=== PATIENT | male | born 1990 | race Caucasian/White ===

== ENCOUNTER 2017-11-24 15:08 | Emergency (ER) | payer OTHER ==
[2017-11-24 15:19] VITALS: BP 143/93; PULSE 73; TEMP 98.5; BMI 21.5
--- NOTE | 2017-11-24 15:37 | PDOC ---
History of Present Illness - General History Source: Patient Exam Limitations: No Limitations - History of Present Illness Initial Comments: The patient is a 27 year old male with a significant past medical history of HTN who presents to the emergency department complaining of left gingiva and tongue pain beginning 3 days ago. The patient reports visiting [facility] and testing positive for Influenza A on Saturday and was given Tamiflu. He reports having lower lip, tongue, and left sided gingiva pain lasting 3 days, 2 days after the visit . The patient reports not being able to eat due to pain in mouth , but has been able to take in fluids.The patient visited the [facility] on for the symptoms and was given Valtrex 500mg (unsure). The patient reports having a cavity on the right side of mouth extracted several months ago; however, he states he did not have a severe cavity on his left side extracted. He reports slight alleviation with 2 Aleve a day. Of note, the patient received an Influenza test on Saturday(11/19), which tested positive for Influenza A, and an HIV test on (11/21). The patient denies chest pain, shortness of breath, headache, and dizziness. Denies fevers, chills, nausea, vomiting, diarrhea, and constipation. Denies dysuria, frequency, urgency, and hematuria. Allergies: NKA Past surgical history: The patient denies. Social history: No reported cigarette, alcohol, or drug use. <Mati Rand - Last Filed: 11/24/17 16:14> <Yuval Kunz - Last Filed: 11/24/17 16:19> - General Chief Complaint: Oral Ulcers Stated Complaint: PERSISTENT PAIN, MOUTH SORES Time Seen by Provider: 11/24/17 15:13 Past History <Mati Rand - Last Filed: 11/24/17 16:14> - Past Medical History COPD: No Other medical history: ORAL ULCERS, IS ON VALTREX, HAS FLU, IS ON TAMIFLU - Suicide/Smoking/Psychosocial Hx Smoking Status: No Smoking History: Never smoked Number of Cigarettes Smoked Daily: 0 Hx Alcohol Use: (occasional) <Yuval Kunz - Last Filed: 11/24/17 16:19> - Past Medical History Allergies/Adverse Reactions: Allergies Allergy/AdvReac Type Severity Reaction Status Date / Time No Known Allergies Allergy Verified 11/24/17 15:11 Home Medications: Ambulatory Orders Naproxen Sodium [Aleve] mg PO ASDIR 11/24/17 Orajel 11/24/17 Penicillin V Potassium [Pen Vee K -] 500 mg PO QID #28 tablet 11/24/17 Valacyclovir HCl [Valtrex] 1,000 mg PO BID #10 tablet 11/24/17 Review of Systems - Review of Systems Able to Perform ROS?: Yes Comments:: CONSTITUTIONAL: Absent: Fever, Chills, Diaphoresis, Generalized Weakness, Malaise, Loss of Appetite HEENT: (+)Lip swelling. (+)Mouth pain. Absent: Rhinorrhea, Nasal Congestion, Throat Pain, Throat Swelling, Ear Pain, Eye Pain, Visual Changes CARDIOVASCULAR: Absent: Chest Pain, Syncope, Palpitations, Irregular Heart Rate, Lightheadedness , Peripheral Edema RESPIRATORY: Absent: Cough, Shortness of Breath, SOB with Exertion, Orthopnea, Wheezing, Stridor, Hemoptysis GASTROINTESTINAL: Absent: Abdominal pain, Abdominal Distension, Nausea, Vomiting, Diarrhea, Constipation, Melena, Hematochezia GENITOURINARY: Absent: Dysuria, Frequency, Urgency, Hesitancy, Flank Pain, Genital Pain MUSCULOSKELETAL: Absent: Myalgia, Arthralgia, Joint Swelling, Back pain, Neck Pain SKIN: Absent: Rash, Itching, Pallor HEMATOLOGIC/IMMUNOLOGIC: Absent: Easy Bleeding, Easy Bruising, Lymphadenopathy, Frequent infections ENDOCRINE: Absent: Unexplained Weight Gain, Unexplained Weight Loss, Heat Intolerance, Cold Intolerance NEUROLOGIC: Absent: Headache, Focal Weakness, Paresthesias, Vertigo, Lightheadedness, Unsteady Gait, Seizure, Mental Status Changes, Incontinence PSYCHIATRIC: Absent: Anxiety, Depression <Mati Rand - Last Filed: 11/24/17 16:14> *Physical Exam - Vital Signs Last Vital Signs Temp Pulse Resp BP Pulse Ox 98.5 F 73 18 143/93 98 11/24/17 15:08 11/24/17 15:08 11/24/17 15:08 11/24/17 15:08 11/24/17 15:08 - Physical Exam Comments: GENERAL: The patient is awake, alert, and fully oriented, in no acute distress. HEAD: Normal with no signs of trauma. EYES: Pupils equal, round and reactive to light, extraocular movements intact, sclera anicteric, conjunctiva clear. ENT: Ears normal, nares patent, Moist mucous membranes. MOUTH: (+)Carious tooth #17, tap tender. (+)Crusting lesions on lower lip. (+) Vesicles and small ulcers on soft palate. (+)Erythema of gingiva. NECK: Normal range of motion, supple without lymphadenopathy, JVD, or masses. LUNGS: Breath sounds equal, clear to auscultation bilaterally. No wheezes, and no crackles. HEART: Regular rate and rhythm, normal S1 and S2 without murmur, rub or gallop. ABDOMEN: Soft, nontender, normoactive bowel sounds. No guarding, no rebound. No masses. EXTREMITIES: Normal range of motion, no edema. No clubbing or cyanosis. No cords , erythema, or tenderness. NEUROLOGICAL: Cranial nerves II through XII grossly intact. Normal speech, normal gait. PSYCH: Normal mood, normal affect. SKIN: Warm, Dry, normal turgor, no rashes or lesions noted. <Mati Rand - Last Filed: 11/24/17 16:14> - Vital Signs Last Vital Signs Temp Pulse Resp BP Pulse Ox 98.5 F 73 18 143/93 98 11/24/17 15:08 11/24/17 15:08 11/24/17 15:08 11/24/17 15:08 11/24/17 15:08 <Yuval Kunz - Last Filed: 11/24/17 16:19> Medical Decision Making - Medical Decision Making 11/24/17 16:17 27-year-old man with no significant past medical history presents with oral pain. He was sick with fever for about a week. He was seen 5 days ago at the urgent care center and tested positive for flu a, was started on Tamiflu. 2 days later he was seen again at urgent care for oral ulcers and pain, started on Valtrex. He was tested for HIV at that time as well. He now comes to the ED with persistent oral pain despite Valtrex. He is also complaining of a toothache in the left lower quadrant to a previously carious tooth. On examination, he appears well. His blood pressure is borderline elevated, however, he is being followed by his primary care physician on diet for mild hypertension. 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 His gums appear mildly inflamed and there are some oral ulcers on the soft palate. Tooth #17 is severely carious with tap tenderness. There is no adjacent abscess. There is no facial swelling or neck swelling. Impression: Influenza a Viral stomatitis Toothache of tooth #17 Plan: Patient to continue Valtrex 1 g twice a day, new prescription given Patient to continue Aleve 440 mg twice a day as needed for pain Patient is to start penicillin VK 500 mg 4 times a day for toothache Hydrogen peroxide rinses advised Vaseline to the lower lip advised Patient to follow up with dentist and primary care physician <Yuval Kunz - Last Filed: 11/24/17 16:19> *DC/Admit/Observation/Transfer - Attestations Scribe Attestion: Documentation prepared by Mati Rand, acting as medical case worker for Yuval Kunz MD. <Mati Rand - Last Filed: 11/24/17 16:14> - Discharge Dispostion Admit: No <Yuval Kunz - Last Filed: 11/24/17 16:19> Diagnosis at time of Disposition: Stomatitis - Discharge Dispostion Disposition: HOME Condition at time of disposition: Stable - Prescriptions Prescriptions: Penicillin V Potassium [Pen Vee K -] 500 mg PO QID #28 tablet Valacyclovir HCl [Valtrex] 1,000 mg PO BID #10 tablet - Patient Instructions Printed Discharge Instructions: DI for Aphthous Ulcers (Canker Sores) Additional Instructions: Theodore, you were evaluated today for sores in your mouth. There are likely 2 things going on. The first is a herpes virus infection of your lips and gums. Take Valtrex 1 g (1000 mg) twice a day for the next 5 days to help resolve the herpes virus infection. You have also been prescribed penicillin 500 mg 4 times a day for the tooth infection in the left lower part of your mouth. Continue to take Aleve, 2 tablets twice a day as needed for pain. Rinse your mouth with hydrogen peroxide and then water to help clear out the viral infection and speed healing. Follow-up with your dentist and your primary care physician. Return to the emergency department for any severe or progressive symptoms.
[2017-11-24] MEDS ORDERED: PENICILLIN V POTASSIUM 500 MG TABLET PO ONE (16:02)
== END 2017-11-24 16:24 | disposition home or self-care (01) ==
LOC: FER 15:08
DX: K12.1 Other forms of stomatitis (principal); I10 Essential (primary) hypertension
CPT/HCPCS: 99283-25

== ENCOUNTER 2017-11-30 13:25 | Emergency (ER) | payer OTHER ==
[2017-11-30 13:37] VITALS: BP 120/67; PULSE 74; TEMP 98.3; BMI 21.1
--- NOTE | 2017-11-30 13:44 | PDOC ---
Attending Attestation - Resident Resident Name: Federico Hines - ED Attending Attestation I have performed the following: I have examined & evaluated the patient, The case was reviewed & discussed with the resident, I agree w/resident's findings & plan, Exceptions are as noted - HPI HPI: 11/30/17 13:45 27-year-old male with a history of diet-controlled hypertension, recent infection with influenza A and stomatitis presents to the emergency department with left second fingertip infection. Patient reports one week ago that he bit a hangnail and since then developed redness and progressive swelling and pain to the distal fingertip. Denies any fevers or chills. Denies similar symptoms in the past. He reports his flu symptoms and stomatitis have resolved since he was here last week. Denies any chest pain, shortness of breath, headaches, abdominal pain, nausea/vomiting/diarrhea, lower extremity edema, weakness or dizziness. - Physicial Exam PE: 11/30/17 13:46 GENERAL: Awake, alert, and fully oriented, in no acute distress HEAD: No signs of trauma EYES: PERRLA, EOMI, sclera anicteric, conjunctiva clear ENT: Auricles normal inspection, hearing grossly normal, nares patent, oropharynx clear without exudates. Moist mucosa NECK: Normal ROM, supple, no lymphadenopathy, JVD, or masses LUNGS: Breath sounds equal, clear to auscultation bilaterally. No wheezes, and no crackles HEART: Regular rate and rhythm, normal S1 and S2, no murmurs, rubs or gallops ABDOMEN: Soft, nontender, normoactive bowel sounds. No guarding, no rebound. No masses EXTREMITIES: L 2nd digit with erythema, edema, tenderness arising from eponychial fold consistent with paronychia. No vesicular legions. Otherwise, normal range of motion, no edema. No clubbing or cyanosis. No cords, erythema, or tenderness. 2+ peripheral pulses. NEUROLOGICAL: Normal speech, cranial nerves intact, negative pronator drift, 5/ 5 strength in all 4 extremities, normal sensation to light touch in all 4 extremities, normal cerebellar exam, normal gait, normal reflexes and tone SKIN: Warm, Dry, normal turgor, no rashes or lesions noted. - Medical Decision Making 11/30/17 13:49 Likely paronycia as no vesicular lesions, unlikely herpetic yazan. Paronychia drained by Dr. Hines with purulent and bloody drainage. Good relief of pain and swelling post I&D. No systemic sxs. Will DC, advised pt to do warm compresses as there may be continued drainage. Pt expresses understanding, requests DC home. I discussed the physical exam findings, ancillary test results and final diagnoses with the patient. I answered all of the patient's questions. The patient was satisfied with the care received and felt comfortable with the discharge plan and treatment plan. The patient will call their primary care physician within 24 hours to arrange follow-up and will return to the Emergency Department with any new, persistent or worsening symptoms. Discharge Disposition - Diagnosis Paronychia - Discharge Dispostion Disposition: HOME Condition at time of disposition: Good Last Admission D/C Date: 88 Admit: No - Referrals Referrals: Chanelle Bella MD [Primary Care Provider] - - Patient Instructions Printed Discharge Instructions: DI for Paronychia Additional Instructions: Follow-up with your primary care doctor within 1 week. As discussed, apply warm compresses to your finger 3 times a day as this will help further draining of the infection in your finger. Take ibuprofen as needed for pain. Return to the emergency department if you have any new, worsening or concerning symptoms. - Post Discharge Activity
--- NOTE | 2017-11-30 13:57 | PDOC ---
History of Present Illness - General Chief Complaint: Redness To Affected Area Stated Complaint: LEFT FINGER INFECTION Time Seen by Provider: 11/30/17 13:29 - History of Present Illness Initial Comments: 11/30/17 13:52 The patient is a 27 year old male who presents for evaluation of swelling and redness to his left index finger. The patient reports that he had a recent tooth infection and oral sores for which he had been taking valtrex and penecillin for. He notes that he noticed swelling and redness to his left index finger over the past 1 week after biting his nails prompting his presentation to the ED. He otherwise denies fevers, chills, SOB, chest pain, nausea, vomiting, abdominal pain, weakness, or changes with urination or bowel movements. Past History - Past Medical History Allergies/Adverse Reactions: Allergies Allergy/AdvReac Type Severity Reaction Status Date / Time No Known Allergies Allergy Verified 11/24/17 15:11 Home Medications: Ambulatory Orders Naproxen Sodium [Aleve] mg PO ASDIR 11/24/17 Orajel 11/24/17 Penicillin V Potassium [Pen Vee K -] 500 mg PO QID #28 tablet 11/24/17 Valacyclovir HCl [Valtrex] 1,000 mg PO BID #10 tablet 11/24/17 COPD: No - Suicide/Smoking/Psychosocial Hx Smoking Status: No Smoking History: Never smoked Number of Cigarettes Smoked Daily: 0 Hx Alcohol Use: Yes (OCCASIONAL) Drug/Substance Use Hx: No Review of Systems - Review of Systems Comments:: 11/30/17 13:55 Constitutional: No fevers, chills, fatigue, malaise HEENT: No Rhinorrhea, nasal congestion, visual changes Cardiovascular: No chest pain, syncope, palpitations, lightheadedness Respiratory: No Cough, SOB, Hemoptysis, Gastrointestinal: No Abdominal pain, Nausea, Vomiting, Constipation, Diarrhea, Melena Genitourinary: No Dysuria, Frequency, Urgency, Hesitancy, Hematuria, Flank pain Musculoskeletal: No Myalgia, arthralgia Skin: Redness and Swelling to the distal Left Index Finger. No rashes, itching , bruising, pallor Neurologic: No Headache, Dizziness, Numbness, Weakness, or Tingling Psychiatric: No Hallucinations. No SI or HI *Physical Exam - Vital Signs Last Vital Signs Temp Pulse Resp BP Pulse Ox 98.3 F 74 15 120/67 100 11/30/17 13:29 11/30/17 13:29 11/30/17 13:29 11/30/17 13:29 11/30/17 13:29 - Physical Exam Comments: 11/30/17 13:56 General Appearance: Nourished. No Apparent Distress HEENT: No Pharyngeal Erythema, Tonsillar Exudate, Tonsillar Erythema Neck: No Cervical Lymphadenopathy Respiratory/Chest: Lungs Clear, Normal Breath Sounds. No Crackles, Rales, Rhonchi, Wheezing Cardiovascular: Regular Rhythm, Regular Rate. No Murmur, Gallops, Rubs Gastrointestinal/Abdominal: Normal Bowel Sounds, Soft. No Guarding, Rebound, Tenderness Musculoskeletal: No CVA Tenderness Extremity: Paronychia with redness and fluculent swelling noted to the distal left index finger. Normal ROM. Normal Capillary Refill Integumentary: Normal Color, Dry, Warm Neurologic: Fully Oriented, Alert, Normal Mood/Affect, Normal Response, Procedures - Incision and Drainage I&D Site: Left: Paronychia (Index Finger) Blade Size: 11 Attempts: 1 Complications: none Dressing: Yes Medical Decision Making - Medical Decision Making 11/30/17 13:58 The patient is a 27 year old male who presents for evaluation of swelling and redness to his left index finger. Given the patient's physical exam, it appears his symptoms are due to a paronychia. The paronychia was I&D with purulent fluid drainage from the site and the wound was dressed. We discussed return precautions as well as proper wound care with the patient who voiced understanding. We are comfortable discharging the patient home at this time with primary care provider follow up. The patient voiced understanding and is agreeable with the plan. *DC/Admit/Observation/Transfer Diagnosis at time of Disposition: Paronychia - Discharge Dispostion Disposition: HOME Condition at time of disposition: Good - Referrals Referrals: Chanelle Bella MD [Primary Care Provider] - - Patient Instructions Printed Discharge Instructions: DI for Paronychia Additional Instructions: Follow-up with your primary care doctor within 1 week. As discussed, apply warm compresses to your finger 3 times a day as this will help further draining of the infection in your finger. Take ibuprofen as needed for pain. Return to the emergency department if you have any new, worsening or concerning symptoms. - Post Discharge Activity
== END 2017-11-30 14:00 | disposition home or self-care (01) ==
LOC: FER 13:25
PROC: 0H9QXZZ Drainage of Finger Nail, External Approach (ICD-10-PCS; principal; 2017-11-30)
DX: L03.012 Cellulitis of left finger (principal)
CPT/HCPCS: 99282-25

== ENCOUNTER 2021-11-20 11:34 | Emergency (ER) | payer OTHER ==
[2021-11-20 11:39] VITALS: BP 119/76; PULSE 68; TEMP 97.8; BMI 22.2
[2021-11-20] MEDS ORDERED: IBUPROFEN 400 MG TABLET (FP) PO ONE ×2 (11:40→12:00)
[2021-11-20] MEDS ORDERED: LIDOCAINE 5% TOPICAL PATCH TP ONE (12:23)
[2021-11-20] MEDS ORDERED: LIDOCAINE 5% TOPICAL PATCH ONE (12:25)
[2021-11-20] MEDS ORDERED: LIDOCAINE PATCH REMOVAL MC SCH (22:00)
== END 2021-11-20 12:55 | disposition home or self-care (01) ==
LOC: FER 11:34
DX: M54.50 Low back pain, unspecified (principal)
CPT/HCPCS: 99283-25